=== PATIENT | female | born 1970 | race Two or more races ===

== ENCOUNTER 2019-06-22 12:58 | Emergency (ER) | payer MEDICAID ==
[~2019-06-22] VITALS: Ht 170.2 cm; Wt 77.1 kg
--- NOTE | 2019-06-22 13:00 | NUR ---
DR SALGADO AT BEDSIDE
--- NOTE | 2019-06-22 13:06 | NUR ---
[id number] WITH [employer] FOR SI ATTEMPT, CUT LT WRIST WITH RAZOR, DENIES S/I AT THIS TIME. [employer] WILL BE WRITING 5150 HOLD. PATIENT STATED "I JUST CAN'T HANDLE PEOPLE TALKING ABOUT ME AND MY FATHER'S HEALTH IS DECLINING. I CAN'T SLEEP PROPERLY". TO ER BED 11, HOOKED TO MONITOR, CHANGED TO HOSPITAL [facility], AWAITING MD BARNES. [employer] AT BEDSIDE
[2019-06-22 13:19] LABS: BASOPHILS # (AUTO) 0.1 /CMM (0.0-0.2); BASOPHILS % (AUTO) 0.7 % (0.0-2.0); EOSINOPHILS % (AUTO) 2.1 % (0.0-6.0); HEMATOCRIT 42 % (33-45); HEMOGLOBIN 13.9 g/dL (11.5-14.8); LYMPHOCYTES % (AUTO) 10.8 % (20.0-44.0); MEAN CORPUSCULAR HGB CONC 33 g/dl (31.0-36.0); MEAN CORPUSCULAR VOLUME 92 fL (82-100); MONOCYTES # (AUTO) 0.5 /CMM (0.1-1.30); MONOCYTES % (AUTO) 5.7 % (2.0-12.0); NEUTROPHILS # (AUTO) 7.6 /CMM (1.8-8.9); NEUTROPHILS % (AUTO) 80.7 % (43.0-81.0); PLATELET COUNT (AUTO) 298 /CMM (150-450); RED BLOOD CELL COUNT(AUTO) 4.56 MIL/uL (4.0-5.2); WHITE BLOOD COUNT (AUTO) 9.4 K/uL (4.3-11.0)
[2019-06-22 13:31] LABS: CALCIUM, SERUM 8.5 mg/dL (8.5-10.1); CARBON DIOXIDE 28 mmol/L (21-32); CHLORIDE 105 mmol/L (98-107); CREATININE 0.8 mg/dL (0.6-1.3); GLUCOSE 106 mg/dL (74-106); SODIUM SERUM 140 mmol/L (136-145); UREA NITROGEN, BLOOD 9 mg/dL (7-18)
[2019-06-22 13:36] LABS: ACETAMINOPHEN < 2 ug/ml (10-30); ALANINE AMINOTRANSFERASE 21 U/L (12-78); ALBUMIN 3.2 g/dL (3.4-5.0); ALCOHOL, BLOOD < 3 mg/dL (0-0); ALKALINE PHOSPHATASE 92 U/L (46-116); ASPARTATE AMINOTRANSFERASE 14 U/L (15-37); BILIRUBIN,TOTAL 0.3 mg/dL (0.2-1.0); SALICYLATE 1.1 mg/dL (2.8-20.0); TOTAL PROTEIN, SERUM 6.8 g/dL (6.4-8.2)
[2019-06-22] MEDS ORDERED: TDAP [DIPH/PERTUSSIS/TET] 0.5 ML VIAL IM ONE ×2 (14:00→14:06)
--- NOTE | 2019-06-22 14:30 | NUR ---
URINE SAMPLE SENT TO LAB
--- NOTE | 2019-06-22 14:30 | NUR ---
urine collected and sent to lab
[2019-06-22 14:39] LABS: APPEARANCE,URINE Clear (CLEAR); BILIRUBIN,URINE Negative (NEGATIVE); BLOOD, URINE Trace-intact Ery/uL (NEGATIVE); COLOR,URINE Yellow (YELLOW); KETONES,URINE Negative (NEGATIVE); LEUKOCYTE ESTERASE ,URINE Negative (NEGATIVE); NITRITE, URINE Negative (NEGATIVE); PH,URINE 7.5 (5.0-8.0); PROTEIN,URINE Trace mg/dl (NEGATIVE); UGLUCOSE Negative (NEGATIVE); UROBILINOGEN,URINE 0.2 EU/dL (0.2)
[2019-06-22 14:46] LABS: BACTERIA,URINE Rare /HPF (None Seen); SQUAMOUS EPITHELIAL CELL,UR Few /HPF (None Seen); WBC,URINE NONE SEEN /HPF (0-3)
--- NOTE | 2019-06-22 16:48 | NUR ---
[facility] ETA 1HR
--- NOTE | 2019-06-22 18:42 | NUR ---
[employer] GEOGRAPHER VINAYAK AT BEDSIDE
--- NOTE | 2019-06-22 19:19 | NUR ---
Patient discharged to home with in stable condition. Written and verbal after care instructions given. Patient and husbandverbalizes understanding of instruction.
[2019-06-22 19:24] VITALS: BP 126/72
== END 2019-06-22 19:24 | disposition home or self-care (01) ==
LOC: ER 13:00
DX: S61.512A Laceration without foreign body of left wrist, initial encounter (principal); R45.851 Suicidal ideations; F32.9 Major depressive disorder, single episode, unspecified; X78.8XXA Intentional self-harm by other sharp object, initial encounter; Y93.89 Activity, other specified; Y92.89 Other specified places as the place of occurrence of the external cause; Y99.8 Other external cause status
CPT/HCPCS: 36415; 80048; 80076; 80305; 80307; 80329; 81001; 84443; 84703; 85025; 90471; 90715; 99285; G0480; 81000-TC